=== PATIENT | male | born 1970 | race Caucasian/White ===

== ENCOUNTER 2017-02-04 16:23 | Inpatient (IN) ==
[2017-02-04] MEDS ORDERED: DUONEB (A & A) INH PRN ×2 (17:35→17:56)
[2017-02-04] MEDS ORDERED: VENTOLIN HFA INH PRN (17:42)
[2017-02-04] MEDS ORDERED: NITROGLYCERIN SL PRN (17:43)
[2017-02-04] MEDS ORDERED: SOLU-MEDROL IV SCH (17:45)
[2017-02-04] MEDS ORDERED: NS 250 ML ONE (17:47)
[2017-02-04] MEDS ORDERED: ZOFRAN IV PRN (17:56)
[2017-02-04] MEDS ORDERED: TYLENOL PO PRN (17:56)
[2017-02-04 18:00] LABS: HEMOGLOBIN 15.1 g/dL (14.0-18.0); MCH 28.2 PG (27-31); MCHC 33.6 g/dL (33-37); MPV 11.8 FL (7.4-10.4); RBC 5.36 XMIL (4.7-6.1)
[2017-02-04] MEDS: LEVAQUIN 500 MG/D5W 500 MG/100 ML IVPB IV SCH (18:08)
[2017-02-04] MEDS: SOLU-MEDROL IV SCH (18:09)
[2017-02-04 18:12] LABS: AGAP 17; ALBUMIN 4.3 g/dL (3.5-5.0); ALKALINE PHOSPHATASE 60 U/L (32-122); BUN 8 mg/dL (8-22); CALCIUM 9.1 mg/dL (8.8-10.2); CHLORIDE 94 mmol/L (98-107); COSMO 269; GOT 13 U/L (10-34); GPT 10 U/L (10-44); POTASSIUM 3.5 mmol/L (3.5-5.1); SODIUM 133 mmol/L (136-145); TCO2 22 mmol/L (25-35); TOTAL PROTEIN 7.7 g/dL (6.3-8.3)
[2017-02-04] MEDS: NS 1,000 ML IV SCH (18:12)
[2017-02-04] MEDS: GLUCOPHAGE PO SCH (18:12)
[2017-02-04] MEDS: PROTONIX IV SCH (18:20)
--- NOTE | 2017-02-04 18:23 | EKG Report ---
Test Performed on : 02/04/2017 6:02:42 PM Test Reason : COPD Blood Pressure : / mmHG Vent. Rate : 103 BPM Atrial Rate : 103 BPM P-R Int : 148 ms QRS Dur : 084 ms QT Int : 324 ms P-R-T Axes : 055 015 080 degrees QTc Int : 424 ms Sinus tachycardia. Otherwise normal ECG When compared with ECG of 02-SEP-2016 19:40, No significant change was found Confirmed by Anam Moffett MD ([id number]) on 02/26/2017 10:15:01 PM
[2017-02-04] MEDS: DUONEB (A & A) INH SCH ×2 (19:40→23:12)
[2017-02-04] MEDS: SYMBICORT 160/4.5 MICROGM INHALER INH SCH (19:41)
[2017-02-04] MEDS: CRESTOR PO SCH (20:46)
[2017-02-04] MEDS: TESSALON PO PRN (20:46)
[2017-02-04] MEDS: HUMALOG DOSE (PARKWAY) SUBQ SCH (21:04)
[2017-02-04] MEDS: NON-FORMULARY BULK MED SUBQ SCH (21:05)
[2017-02-04] MEDS ORDERED: INSULIN PEN NEEDLES ONE (21:08)
[2017-02-05] MEDS: SOLU-MEDROL IV SCH ×3 (02:11→18:08)
[2017-02-05] MEDS: NICODERM PATCH TD PRN ×2 (02:11→21:10)
[2017-02-05] MEDS: DUONEB (A & A) INH SCH ×5 (03:18→20:08)
[2017-02-05] MEDS: HUMALOG DOSE (PARKWAY) SUBQ SCH ×3 (06:10→16:31)
[2017-02-05 06:58] LABS: HEMATOCRIT 41.8 % (42.0-52.0); HEMOGLOBIN 13.5 g/dL (14.0-18.0); MCH 27.6 PG (27-31); MCHC 32.3 g/dL (33-37); MCV 85.3 FL (81-99); MPV 12.6 FL (7.4-10.4); RBC 4.9 XMIL (4.7-6.1)
[2017-02-05] MEDS ORDERED: PRILOSEC PO SCH (07:00)
[2017-02-05 07:36] LABS: AGAP 19; ALBUMIN 3.6 g/dL (3.5-5.0); ALKALINE PHOSPHATASE 56 U/L (32-122); BUN 14 mg/dL (8-22); CALCIUM 9.6 mg/dL (8.8-10.2); CHLORIDE 96 mmol/L (98-107); COSMO 285; GOT 13 U/L (10-34); GPT 10 U/L (10-44); MAGNESIUM 1.7 mg/dL (1.5-2.7); POTASSIUM 5.1 mmol/L (3.5-5.1); SODIUM 133 mmol/L (136-145); TCO2 18 mmol/L (25-35); TOTAL BILIRUBIN < 0.15 mg/dL (0.20-1.00); TOTAL PROTEIN 6.7 g/dL (6.3-8.3)
[2017-02-05] MEDS: SYMBICORT 160/4.5 MICROGM INHALER INH SCH ×2 (07:36→20:08)
[2017-02-05] MEDS: LOPRESSOR PO SCH (08:48)
[2017-02-05] MEDS: GLUCOPHAGE PO SCH ×2 (08:48→16:31)
[2017-02-05] MEDS: CELEXA PO SCH (08:48)
[2017-02-05] MEDS: VITAMIN B-12 PO SCH (08:48)
[2017-02-05] MEDS: NON-FORMULARY MED PO SCH (08:48)
[2017-02-05] MEDS: VITAMIN D PO SCH (08:48)
[2017-02-05] MEDS: ASPIRIN PO SCH (08:48)
[2017-02-05] MEDS: PRINIVIL PO SCH (08:49)
[2017-02-05] MEDS: IMDUR PO SCH (08:49)
--- NOTE | 2017-02-05 09:08 | HISTORY AND PHYSICAL ---
CHIEF COMPLAINT: Shortness of breath. Cough. HISTORY OF PRESENT ILLNESS: Patient is a 46-year-old male, who presented to the office with increased cough, congestion, increased work of breathing, increased shortness of breath. Notes he has been having low-grade fevers, occasional chills. Denies any chest pain, palpitations. States that his symptoms continued to worsen. Therefore, he came to the office today. PAST MEDICAL HISTORY: History of skin cancer, diabetes, COPD, hypertension, reflux, and coronary artery disease. ALLERGIES: No known drug allergies. MEDICATIONS: 1. Aspirin. 2. Celexa. 3. Advair. 4. Metformin. 5. Levemir. 6. Imdur. 7. Nexium. 8. Prinivil. FAMILY HISTORY: Notable for heart disease, lung cancer and diabetes in first-degree relatives. SOCIAL HISTORY: Patient continues to smoke a pack a day. Interestingly he notes that he is planning on quitting, which is the same note from March of 2016. Denies any illicit drug use or alcohol use. He is , lives at home. His primary care is [facility]. REVIEW OF SYSTEMS: Positive cough, congestion, increased work of breathing, increased dyspnea on exertion. Of note, he has had fever up to 102. His cough has been nonproductive, but persistent. Denies any sick contacts. Denies any dysuria, frequency. Denies any hesitancy, constipation, melena, hematochezia. Denies any chest pains currently. Denies palpitations. Denies skin rashes. PHYSICAL EXAMINATION: VITAL SIGNS: Reviewed. He is currently afebrile, pulse, 100 respiratory 22, blood pressure is stable. GENERAL: Patient is awake, alert. He appears much older than his stated age of 46. HEENT: Normocephalic, atraumatic. AGNES. NECK: Supple. CV: Regular rate and rhythm. CHEST: Decreased breath sounds bilaterally. Positive crackles throughout. ABDOMEN: Soft. EXTREMITIES: Moves all extremities. NEUROLOGIC: No focal changes. SKIN: Warm, dry. No rashes. ASSESSMENT: 1. Pneumonia. 2. Chronic tobacco abuse. 3. Type 2 diabetes. 4. Known coronary artery disease. 5. Hyperlipidemia. 6. Known peripheral vascular disease. 7. Chronic reflux. 8. Chronic obstructive pulmonary disease with mild exacerbation. 9. Hypertension. PLAN: We will admit patient to the hospital. Check labs. Chest x-ray, place on antibiotics, breathing treatments, steroids and continue to follow. cc: Arslan Moise MD
--- NOTE | 2017-02-05 09:11 | Diag Imaging Result Document ---
PROCEDURE NAME: CHEST-2 VIEWS - 02/05/2017 PA AND LATERAL RADIOGRAPH OF THE CHEST: COMPARISON: 09/02/2016. FINDINGS: There is a small stable calcified granuloma at the periphery of the left upper lung zone. This is stable. The lungs are grossly clear otherwise. There is no definite pleural fluid collection. Cardiac silhouette and central vasculature are unremarkable. IMPRESSION: No evidence of acute pathology.
[2017-02-05] MEDS: NS 1,000 ML IV SCH (15:55)
[2017-02-05] MEDS: LEVAQUIN 500 MG/D5W 500 MG/100 ML IVPB IV SCH (18:07)
[2017-02-05] MEDS: PROTONIX IV SCH (18:08)
[2017-02-05] MEDS: SODIUM CHLORIDE 0.9% INJ SCH (18:08)
[2017-02-05] MEDS ORDERED: INSULIN PEN NEEDLES ONE (21:01)
[2017-02-05] MEDS: CRESTOR PO SCH (21:04)
[2017-02-05] MEDS: NON-FORMULARY BULK MED SUBQ SCH (21:04)
[2017-02-05] MEDS: TESSALON PO PRN (21:04)
[2017-02-06] MEDS: DUONEB (A & A) INH SCH ×5 (00:13→15:12)
[2017-02-06] MEDS: SOLU-MEDROL IV SCH ×3 (03:10→17:11)
[2017-02-06] MEDS: HUMALOG DOSE (PARKWAY) SUBQ SCH ×4 (06:09→17:12)
[2017-02-06 06:54] LABS: HEMATOCRIT 38.4 % (42.0-52.0); HEMOGLOBIN 12.4 g/dL (14.0-18.0); MCH 27.9 PG (27-31); MCHC 32.3 g/dL (33-37); MCV 86.3 FL (81-99); MPV 12.4 FL (7.4-10.4); RBC 4.45 XMIL (4.7-6.1)
[2017-02-06 07:14] LABS: AGAP 19; ALBUMIN 3.4 g/dL (3.5-5.0); ALKALINE PHOSPHATASE 48 U/L (32-122); BUN 17 mg/dL (8-22); CALCIUM 9.6 mg/dL (8.8-10.2); CHLORIDE 102 mmol/L (98-107); COSMO 285; GOT 11 U/L (10-34); GPT 8 U/L (10-44); POTASSIUM 4.4 mmol/L (3.5-5.1); SODIUM 139 mmol/L (136-145); TCO2 18 mmol/L (25-35); TOTAL BILIRUBIN < 0.15 mg/dL (0.20-1.00)
[2017-02-06] MEDS: SYMBICORT 160/4.5 MICROGM INHALER INH SCH (07:30)
[2017-02-06] MEDS: GLUCOPHAGE PO SCH ×2 (07:48→17:12)
[2017-02-06] MEDS: NS 1,000 ML IV SCH (07:49)
--- NOTE | 2017-02-06 08:15 | PROGRESS NOTE ---
DATE: 02/06/2017 SUBJECTIVE: Patient notes that he is feeling a lot better. He is having less cough and congestion. He is still having increased work of breathing and shortness of breath compared to his baseline but improved since admission. Denies any current chest pain, palpitations, GI or issues. OBJECTIVE: Vital Signs: Reviewed. General: He is awake, alert, oriented. He is currently in no respiratory distress. HEENT: Normocephalic and atraumatic. Neck: Supple. CV: Regular rate and rhythm. Chest: Equal but slightly decreased breath sounds bilaterally. Faint wheezing bilaterally. Abdomen: Soft. Extremities: Moves all extremities. Neurologic: No focal changes. ASSESSMENT: 1. Diabetes with hyperglycemia secondary to Solu-Medrol. 2. Chronic obstructive pulmonary disease with moderate exacerbation. 3. Chronic tobacco abuse. PLAN: We will continue to wean steroids. Hopefully, he can be discharged home in 1-2 days. We will continue sliding scale insulin. This as well should improve with a decrease in Solu-Medrol. cc: Arslan Moise MD
[2017-02-06] MEDS: PRINIVIL PO SCH (09:28)
[2017-02-06] MEDS: VITAMIN D PO SCH (09:28)
[2017-02-06] MEDS: VITAMIN B-12 PO SCH (09:28)
[2017-02-06] MEDS: ASPIRIN PO SCH (09:28)
[2017-02-06] MEDS: NON-FORMULARY MED PO SCH (09:28)
[2017-02-06] MEDS: IMDUR PO SCH (09:28)
[2017-02-06] MEDS: LOPRESSOR PO SCH (09:28)
[2017-02-06] MEDS: CELEXA PO SCH (09:28)
[2017-02-06] MEDS: MEDROL PO SCH ×2 (11:08→11:18)
[2017-02-06] MEDS ORDERED: MEDROL PO SCH ×2 (13:00→17:00)
[2017-02-06 16:27] VITALS: BP 123/69
[2017-02-06] MEDS ORDERED: LEVAQUIN PO SCH (17:00)
[2017-02-06] MEDS: SODIUM CHLORIDE 0.9% INJ SCH (17:11)
[2017-02-06] MEDS: PROTONIX IV SCH (17:11)
[2017-02-07] MEDS ORDERED: MEDROL PO SCH (09:00)
[2017-02-07] MEDS ORDERED: MEDROL PO ONE (21:00)
[2017-02-08] MEDS ORDERED: MEDROL PO SCH (21:00)
--- NOTE | 2017-02-14 13:51 | PROGRESS NOTE ---
DATE: 02/05/2017 SUBJECTIVE: Patient notes that he is feeling a little bit better. He is having less cough, less shortness of breath. Denies any chest pain, palpitations. Denies any GI or issues. Denies any fevers or chills. OBJECTIVE: Vital Signs: Reviewed and stable. HEENT: Normocephalic. Neck: Supple. CV: Regular rate. Chest: Decreased breath sounds but equal bilaterally. Improved from yesterday's exam. Positive wheezing. Abdomen: Soft, nondistended. Extremities: Moves all extremities. Neurologic: No changes. ASSESSMENT: 1. Pneumonia. 2. Chronic tobacco abuse. 3. Type 2 diabetes. 4. Known coronary artery disease. 5. Hyperlipidemia. 6. Chronic reflux. 7. Hypertension. 8. COPD with exacerbation. PLAN: We will continue patient on his current antibiotics. Will attempt to decrease his steroids, wean down his oxygen, continue breathing treatments. Further orders as needed. cc: Arslan Moise MD
--- NOTE | 2017-02-15 12:56 | DISCHARGE SUMMARY ---
ADMISSION DATE: 02/04/2017 DISCHARGE DATE: 02/06/2017 DISCHARGE DIAGNOSES: 1. Chronic obstructive pulmonary disease exacerbation. 2. Pneumonia. 3. Type 2 diabetes. CONSULTATIONS: None. PROCEDURES: None. BRIEF HOSPITAL COURSE: The patient is a 46-year-old male who presented to the emergency department as noted. He was treated in usual fashion, placed on antibiotics, breathing treatments, oxygen. He continued to improve. On discharge, he was awake, alert. He was in no distress and was feeling better. DISPOSITION: The patient will be discharged home. He will follow up with WAI Lockhart, his primary provider in 1-2 weeks. Will continue tapering dose of steroids as well as antibiotics. He will continue breathing treatments as needed. TIME SPENT: 35 minutes spent in discharge planning and instructions. cc: Arslan Moise MD
== END 2017-02-06 19:12 | disposition home or self-care (01) ==
LOC: P.DIRADM 16:23 → P.MEDSURG 17:03
PROVIDERS: ADMIT Family Medicine; ATTEND Family Medicine

== ENCOUNTER 2019-02-16 11:51 | Inpatient (IN) ==
--- NOTE | 2019-02-16 12:29 | EKG Report ---
Test Performed on : 02/16/2019 12:00:06 PM Test Reason : CP Blood Pressure : / mmHG Vent. Rate : 074 BPM Atrial Rate : 074 BPM P-R Int : 142 ms QRS Dur : 092 ms QT Int : 366 ms P-R-T Axes : 038 038 010 degrees QTc Int : 406 ms Normal sinus rhythm. Normal ECG When compared with ECG of 04-FEB-2017 18:02, Nonspecific T wave abnormality now evident in Inferior leads Unconfirmed Result
[2019-02-16] MEDS ORDERED: ASPIRIN PR ONE (12:47)
[2019-02-16] MEDS ORDERED: ASPIRIN PO ONE (12:47)
[2019-02-16 12:58] LABS: BASO# 0.03 X1000 (0.0-0.2); BASO% 0.3 % (0.0-0.8); EOS# 0.18 X1000 (0.0-0.7); HEMATOCRIT 42.3 % (42.0-52.0); HEMOGLOBIN 14.4 g/dL (14.0-18.0); LYMPH# 2.83 X1000 (1.2-3.4); LYMPH% 31.5 % (20.5-51.1); MCH 28.7 PG (27-31); MCV 84.4 FL (81-99); MONO# 0.94 X1000 (0.11-0.59); MONO% 10.5 % (1.7-9.3); MPV 10.7 FL (7.4-10.4); NEUT# 5.01 X1000 (1.4-6.5); NEUT% 55.7 % (42.2-75.2); PLT 182 X1000 (130-400); RBC 5.01 XMIL (4.7-6.1); RDW 13.9 % (11.5-14.5); WBC 8.99 X1000 (4.8-10.8)
--- NOTE | 2019-02-16 13:04 | Diag Imaging Result Doc PS360 ---
CHEST-2 VIEWS - 02/16/2019 INDICATION: CP COMPARISON: 02/05/2017 FINDINGS: The lungs are normally expanded and clear. Heart size and mediastinal contours are normal. No pneumothorax or pleural effusion. IMPRESSION: Negative exam. Electronically signed by Edgar Payton 02/16/2019 1:02 PM
[2019-02-16 13:09] LABS: INR 0.83; PROTIME 12.1 Seconds (11.0-16.0); PTT 26.4 Seconds (22.3-41.8)
[2019-02-16 13:25] LABS: SODIUM 139 mmol/L (136-145)
[2019-02-16 13:26] LABS: AGAP 10; ALB/GLOB RATIO 1.6; ALBUMIN 3.9 g/dL (3.5-5.0); ALKALINE PHOSPHATASE 67 U/L (32-122); BUN 6 mg/dL (8-22); CALCIUM 8.6 mg/dL (8.8-10.2); CHLORIDE 104 mmol/L (98-107); CK PROFILE 75 U/L (24-204); COSMO 277; CREATININE 0.7 mg/dL (0.7-1.2); ESTIMATED GFR > 60; GLUCOSE 136 mg/dL (70-104); GOT 9 U/L (10-34); GPT 8 U/L (10-44); POTASSIUM 4.3 mmol/L (3.5-5.1); TCO2 25 mmol/L (25-35); TOTAL BILIRUBIN 0.15 mg/dL (0.20-1.00); TOTAL PROTEIN 6.3 g/dL (6.3-8.3)
[2019-02-16] MEDS ORDERED: TYLENOL PO PRN (15:02)
[2019-02-16] MEDS ORDERED: NITROGLYCERIN SL PRN (15:02)
[2019-02-16] MEDS ORDERED: ZOFRAN IV PRN (15:02)
[2019-02-16] MEDS ORDERED: MORPHINE IV PRN (15:02)
[2019-02-16] MEDS: HUMULIN R SUBQ SCH ×2 (16:00→22:50)
[2019-02-16 16:31] LABS: UR AMPHETAMINES QUAL NONE DETECTED (NONE DETECT); UR BARBITUATES QUAL NONE DETECTED (NONE DETECT); UR BENZODIAZEPIN QUAL NONE DETECTED (NONE DETECT); UR CANNABINOIDS QUAL NONE DETECTED (NONE DETECT); UR COCAINE QUAL NONE DETECTED (NONE DETECT); UR METHADONE QUAL NONE DETECTED (NONE DETECT); UR OPIATES QUAL NONE DETECTED (NONE DETECT); UR OXYCODONE QUAL NONE DETECTED (NONE DETECT); UR PCP QUAL NONE DETECTED (NONE DETECT)
[2019-02-16 16:51] LABS: FREE T4 1.2 ng/dL (0.93-1.70); TSH 1.75 uIUmL (0.27-4.20)
--- NOTE | 2019-02-16 16:56 | EKG Report ---
Test Performed on : 02/16/2019 3:41:12 PM Test Reason : CP Blood Pressure : / mmHG Vent. Rate : 052 BPM Atrial Rate : 052 BPM P-R Int : 160 ms QRS Dur : 094 ms QT Int : 436 ms P-R-T Axes : 039 017 019 degrees QTc Int : 405 ms Sinus bradycardia. Otherwise normal ECG When compared with ECG of 16-FEB-2019 12:00, (Unconfirmed) No significant change was found Unconfirmed Result
--- NOTE | 2019-02-16 17:36 | HISTORY AND PHYSICAL ---
PRIMARY CARE PROVIDER: [facility]AI Haywood from [facility]. CHIEF COMPLAINT: Chest pain. HISTORY OF PRESENT ILLNESS: Mr. Tj Gongora is a 48-year-old male with a medical history of coronary artery disease and 2 cardiac stents. He now presents with complaints of chest pain. This morning it has been on and off all day. It would last for about 10 minutes and then it would be gone. He states the last time he had chest pain was around 30 minutes prior to my assessment. It was associated with dizziness, lightheadedness, nausea, chills and sweats, but it did not radiate. At home he took a sublingual nitroglycerin, and here he took aspirin, which he feels made his symptoms resolve. Given his cardiac history, we will admit and consult Cardiology. Will do serial cardiac enzymes and echocardiogram. PAST MEDICAL HISTORY: 1. Skin cancer. 2. Diabetes mellitus type 2. 3. COPD. 4. Hypertension. 5. GERD. 6. Coronary artery disease with a myocardial infarction in 2012 and again in 2017. 7. Severe peripheral arterial disease and peripheral vascular disease. He has had either a femoral stent or a femoral-popliteal bypass (the patient was unsure). 8. 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 PAST SURGICAL HISTORY: 1. PTCA x2. 2. Fem-pop versus femoral stent. The patient was unclear. 3. Bilateral cataracts. 4. Skin cancer excision. SOCIAL HISTORY: A kqwv-[id number]-oxl-day smoker for 20+ years. Denies alcohol or illicit drug use. Lives at home with his . Has financial difficulties. FAMILY HISTORY: Mother has diabetes and an unknown cancer. Father has diabetes and lung cancer. ALLERGIES: No known drug allergies. HOME MEDICATIONS: 1. Aspirin 325 mg p.o. daily. 2. Brilinta 90 mg p.o. twice daily 3. Celexa 20 mg p.o. nightly. 4. Pletal 100 mg p.o. twice daily. 5. Farxiga 10 mg p.o. daily. 6. Neurontin 600 mg p.o. t.i.d. 7. Metformin 1000 mg p.o. twice daily. 8. Isosorbide mononitrate extended release 60 mg p.o. nightly. 9. Jardiance 10 mg p.o. daily. 10.Toprol 25 mg p.o. daily. 11.Omeprazole 40 mg p.o. daily. 12.Plavix 75 mg p.o. daily. 13.Lisinopril 10 mg p.o. nightly. 14.Tricor 145 mg p.o. daily. 15.Crestor 20 mg p.o. daily. REVIEW OF SYSTEMS: A 14-point review of systems is completed, and all are negative except for those mentioned above in the HPI. PHYSICAL EXAMINATION: VITAL SIGNS: Temperature 97.6, heart rate 53, respiratory rate 18, blood pressure 129/85, O2 saturation 98% on room air. He is 5 feet 6 inches tall, weighs 165 pounds. BMI is 26.6. GENERAL: Mr. Tj Gongora is a 48-year-old male who is in no acute distress. He is able to answer questions appropriately. HEENT: Very poor dentition. He is atraumatic, normocephalic. Pupils equal, round, and reactive to light. Extraocular movements intact. Mucous membranes are moist. NECK: Trachea midline. CARDIOVASCULAR: S1 and S2. Bradycardic rate and rhythm. No rubs, gallops or murmurs. No lower extremity edema, +1 dorsalis pedal pulses, +2 radial pulses. Negative for JVD or carotid bruits. PULMONARY: Clear to auscultate. Bilateral breath sounds. No accessory muscle use or work of breathing noted. GI: Soft, nontender, nondistended. Positive bowel sounds x4. EXTREMITIES: Moves all extremities equally. Full range of motion. NEUROLOGIC: A O x3. Follows commands. Sensory is intact. SKIN: Warm, dry. Multiple areas of lesions that appear to be scabies. LABORATORY DATA: White blood cells 8000, hemoglobin 14, hematocrit 42, platelet count 182. INR 0.83. Sodium 139, potassium 3.3, BUN 6, creatinine 0.7, glucose 136. CK 75, troponin less than 0.01, proBNP 171. Albumin is 3.9. Urine drug screen negative. IMAGING: Chest x-ray: Negative exam. EKG: Normal sinus rhythm, rate 74, QTc 406. ASSESSMENT/PLAN: 1. Atypical chest pain. Is chest pain free at this time. Enzymes are negative. No ST changes on his EKG, but will do serial cardiac enzymes. He has had a history of heart attack x2 along with cardiac stent. He has not been compliant and has not been on his Plavix or his Brilinta or aspirin. He has not been taking those, so we will resume that and consult Cardiology for any further recommendations. 2. Diabetes mellitus type 2, likely uncontrolled, as he probably does not take his medications. Will do pattern blood glucoses and sliding scale insulin and check a hemoglobin A1c. Diabetic diet. 3. Severe peripheral arterial disease and peripheral vascular disease. Will continue home medications that he has not been taking. 4. Gastroesophageal reflux disease. Continue proton pump inhibitor. 5. Chronic obstructive pulmonary disease. No exacerbation. 6. Deep venous thrombosis prophylaxis. He is on several different antiplatelet medications. Will continue those. 7. Hyperlipidemia. Continue statin and Tricor. 8. Noncompliance. This is probably likely due to lack of financial stability. tax services intern has been consulted. 9. Tobacco abuse. Cessation discussed. Dictated by WAI Sherwood for Emir Hanson MD Addendum: Patient seen and examined by myself. Agree with WAI note. It reflects my assessment and plan. Patient is being admitted to hospital for chest pain. He has risk factor for CAD and has stents placed. Will repeat an echo, trend troponins and consult Cardiology. cc: WAI Sherwood MD [facility]
--- NOTE | 2019-02-16 17:38 | HISTORY AND PHYSICAL ---
ADDENDUM: ASSESSMENT/PLAN: The patient has scabies apparently all over the body, so we will put him in isolation with contact precautions and provide him with a permethrin cream topical daily for 2 days. Dictated by WAI Sherwood for Emir Hansno MD cc: WAI Sherwood MD
[2019-02-16] MEDS ORDERED: ELIMITE 5% CREAM TOP SCH (18:30)
[2019-02-16] MEDS ORDERED: BRILINTA PO SCH (21:00)
[2019-02-16] MEDS: NEURONTIN PO SCH (21:11)
[2019-02-16] MEDS: CELEXA PO SCH (22:50)
[2019-02-16] MEDS: PLETAL PO SCH (22:50)
[2019-02-16] MEDS: IMDUR PO SCH (22:50)
[2019-02-16] MEDS: PRINIVIL PO SCH (22:50)
[2019-02-17] MEDS ORDERED: PRILOSEC PO SCH ×2 (07:00→09:00)
[2019-02-17 07:08] LABS: BASO# 0.03 X1000 (0.0-0.2); BASO% 0.4 % (0.0-0.8); EOS# 0.14 X1000 (0.0-0.7); EOS% 1.8 % (0.0-10.0); HEMATOCRIT 42.5 % (42.0-52.0); HEMOGLOBIN 14.1 g/dL (14.0-18.0); LYMPH% 32.5 % (20.5-51.1); MCH 28.1 PG (27-31); MCHC 33.2 g/dL (33-37); MCV 84.8 FL (81-99); MONO# 0.85 X1000 (0.11-0.59); MONO% 10.6 % (1.7-9.3); MPV 11.1 FL (7.4-10.4); NEUT# 4.38 X1000 (1.4-6.5); NEUT% 54.7 % (42.2-75.2); PLT 187 X1000 (130-400); RBC 5.01 XMIL (4.7-6.1); RDW 13.9 % (11.5-14.5)
[2019-02-17 07:15] LABS: INR 0.91
[2019-02-17 07:16] LABS: PTT 25.5 Seconds (22.3-41.8)
[2019-02-17 07:40] LABS: AGAP 9; ALB/GLOB RATIO 1.7; ALBUMIN 3.7 g/dL (3.5-5.0); ALKALINE PHOSPHATASE 57 U/L (32-122); BUN 10 mg/dL (8-22); CALCIUM 8.4 mg/dL (8.8-10.2); CHLORIDE 104 mmol/L (98-107); COSMO 278; CREATININE 0.6 mg/dL (0.7-1.2); ESTIMATED GFR > 60; GLUCOSE 130 mg/dL (70-104); GOT 9 U/L (10-34); GPT 7 U/L (10-44); MAGNESIUM 1.7 mg/dL (1.5-2.7); POTASSIUM 4.2 mmol/L (3.5-5.1); SODIUM 139 mmol/L (136-145); TCO2 26 mmol/L (25-35); TOTAL BILIRUBIN 0.22 mg/dL (0.20-1.00); TOTAL PROTEIN 5.9 g/dL (6.3-8.3)
--- NOTE | 2019-02-17 07:59 | EKG Report ---
Test Performed on : 02/17/2019 07:47:37 AM Test Reason : chest pain Blood Pressure : / mmHG Vent. Rate : 071 BPM Atrial Rate : 071 BPM P-R Int : 144 ms QRS Dur : 094 ms QT Int : 394 ms P-R-T Axes : 000 095 115 degrees QTc Int : 428 ms Normal sinus rhythm. Lateral infarct , age undetermined Abnormal ECG When compared with ECG of 16-FEB-2019 15:41, (Unconfirmed) Lateral infarct is now present Nonspecific T wave abnormality, worse in Inferior leads Nonspecific T wave abnormality now evident in Lateral leads Confirmed by Hector SALGUERO, Hudson Encarnacion ([id number]) on 02/18/2019 11:38:31 AM
[2019-02-17] MEDS: NEURONTIN PO SCH ×3 (08:58→16:51)
[2019-02-17] MEDS: TRICOR PO SCH (09:01)
[2019-02-17] MEDS: CRESTOR PO SCH (09:01)
[2019-02-17] MEDS: PLETAL PO SCH ×2 (09:02→21:42)
--- NOTE | 2019-02-17 11:04 | PROVIDER DOCUMENTATION ---
This chart was entered by Kadi Gracia Scribe, acting as scribe for Tutu Aragon MD. HPI-Chest Pain - General Chief Complaint: Chest Pain Stated Complaint: CHEST PAIN,ALSO HAVE ACID REFLUX Time Seen by Provider: 02/16/19 14:29 Source: patient, family Allergies/Adverse Reactions: Patient Allergies Allergy/AdvReac Type Severity Reaction Status Date / Time No Known Allergies Allergy Verified 02/16/19 15:03 Home Medications: Home Medication List Medication Instructions Recorded Confirmed Last Taken Type Citalopram [Celexa] 20 mg PO QPM 04/11/16 02/16/19 05/04/16 History Isosorbide Mononitrate [Isosorbide 60 mg PO QPM 04/11/16 02/16/19 05/05/16 20:00 History Mononitrate ER] LISINOpril [Prinivil] 10 mg PO QPM 04/11/16 02/16/19 05/05/16 20:00 History ROSUVAstatin [Crestor] 20 mg PO DAILY #30 tablet 04/12/16 02/16/19 05/05/16 Rx Metformin [Glucophage] 1,000 mg PO DAILY 05/02/16 02/16/19 05/05/16 20:00 History Benzonatate [Tessalon] 100 mg PO TID PRN PRN #90 capsule 02/06/17 Unknown Rx Aspirin 325 mg PO DAILY 02/16/19 02/16/19 Unknown History Cilostazol 100 mg PO BID 02/16/19 02/16/19 Unknown History Clopidogrel [Plavix] 1 tab PO DAILY 02/16/19 02/16/19 Unknown History Dapagliflozin Propanediol [Farxiga] 10 mg PO DAILY 02/16/19 02/16/19 Unknown History Empagliflozin [Jardiance] 10 mg PO DAILY 02/16/19 02/16/19 Unknown History Fenofibrate [Tricor] 145 mg PO DAILY 02/16/19 02/16/19 Unknown History Gabapentin 600 mg PO TID 02/16/19 02/16/19 Unknown History Metoprolol [Lopressor] 25 mg PO DAILY 02/16/19 02/16/19 Unknown History Omeprazole 40 mg PO DAILY 02/16/19 02/16/19 Unknown History Ticagrelor [Brilinta] 90 mg PO BID 02/16/19 02/16/19 Unknown History - History of Present Illness-CP Nature of Presenting Problem: 48 yowm presents to the ed with c/o chest pain, gerd and has been off all medications for 2 months. pt on exam sts all pain has resolved and back to baseline. Location: reports: central Chest Pain Radiation: reports: no radiation Quality of Pain: reports: aching Severity in ED: moderate Onset/Duration: this morning Timing: gone now Context/Activities at Onset: reports: light activity Modifying Factors: improves with: nothing Associated Symptoms: reports: fatigue. denies: abdominal pain, back pain, dizziness, nausea, shortness of breath, vomiting Nitro Today/Relief: no nitro taken today Aspirin Treatment Today: 325 mg x 1, provided by ED Prior Chest Pain/Cardiac Workup: reports: heart attack Similar Symptoms Previously?: Yes Recently Seen Here or By Another Healthcare Provider: No Review of Systems - Adult - REVIEW OF SYSTEMS - ADULT Constitutional: reports: fatique. denies: chills, fever Eyes: reports: no symptoms reported Ears, Nose, Mouth & Throat: reports: no symptoms reported Cardiovascular: reports: see HPI, chest pain. denies: palpitations, syncope Respiratory: denies: shortness of breath, wheezing Gastrointestinal: denies: abdominal pain, diarrhea, nausea, vomiting Genitourinary: reports: no symptoms reported Musculoskeletal: denies: back pain, neck pain Integumentary: reports: no symptoms reported Neurological: denies: dizziness/vertigo, headache/migraines Psychiatric: reports: no symptoms reported Endocrine: reports: no symptoms reported Hematologic/Lymphatic: reports: no symptoms reported Allergic/Immunologic: reports: no symptoms reported All Other Systems: Reviewed and Negative Past History - Adult - PAST MEDICAL HISTORY-ADULT Review of Records: reports: Nursing Assessment Review, Medications Reviewed Major Childhood Illnesses: reports: denies history Cardiovascular: reports: cardiac disease, HTN, hyperlipidemia, GA, PVD Respiratory: reports: COPD Gastrointestinal: reports: GERD Genitourinary: reports: denies history Musculoskeletal: reports: denies history Neurological: reports: denies history Psychiatric: reports: denies history Endocrine/Immune: reports: Diabetes Diabetes Type: Type 2 Other Conditions: reports: skin disorder (skin cancer) - PRIOR SURGERIES/PROCEDURES Surgical/Procedure History: reports: CABG, cardiac stent - IMMUNIZATION STATUS Childhood Immunizations: UTD Flu Vaccine: NUTD - FAMILY HISTORY Family History: reviewed, not pertinent - SOCIAL HISTORY Smoking: cigarettes, greater than 1 pack/day Provider spent 3-5 mins advising pt. on dangers of tobacco.: Discussed manners to quit use, and f/u contacts for add'l counseling. Substance Use: denies Alcohol Use Frequency: never Living Situation: family Physical Exam-General - PHYSICAL EXAM-ADULT Initial Vital Signs Reviewed: Yes - CONSTITUTIONAL General Appearance: appears well, alert, no apparent distress (pt sts pain has resolved) - EYES Eyes: PERRL/EOMI, pink conjunctivae - HEAD, EARS, NOSE, MOUTH & THROAT HENMT: moist mucous membranes, dental decay - NECK Neck: non-tender, full range of motion, supple, normal inspection - RESPIRATORY Respiratory: chest non-tender, lungs clear, normal breath sounds, no pleuratic chest pain, no respiratory distress, no accessory muscle use - CARDIOVASCULAR Cardiovascular: normal peripheral pulses, regular rate, rhythm - GASTROINTESTINAL (ABDOMEN) Abdominal Exam: normal bowel sounds, non tender, soft - LYMPHATIC Lymphatic: no adenopathy - MUSCULOSKELETAL Back Exam: normal inspection, no CVA tenderness, no vertebral tenderness Extremity: normal range of motion, non-tender, normal inspection, no pedal edema , no calf tenderness, normal capillary refill, pelvis stable - SKIN Integumentary: normal color, normal turgor, warm/dry - NEUROLOGIC Neurologic: grossly normal, no motor/sensory deficits - PSYCHIATRIC Psych/Mental Status: normal mood/affect, normal thought content, normal thought process, oriented x 3 - HEART Score HEART Score: History: Highly Suspicious HEART Score: ECG: Non-Specific Repolarization Disturbance/LBBB/PM HEART Score: Age: 45-65 Years HEART Score: Risk Factors for Atherosclerotic Disease: > or = 3 Risk Factors or History of Atherosclerotic Disease HEART Score: Troponin: < or = Normal Limit Total HEART Score:: 6 Progress - PLAN OF CARE/RESULTS Progress/Plan/Lab Results: Laboratory Results - last 24 hr 02/16/19 02/16/19 02/16/19 12:49 12:49 12:49 WBC 8.99 RBC 5.01 Hgb 14.4 Hct 42.3 MCV 84.4 MCH 28.7 MCHC 34.0 RDW Std Deviation 13.9 Plt Count 182 MPV 10.7 H Immature Gran % (Auto) 0.0 Neut % (Auto) 55.7 Lymph % (Auto) 31.5 [place] % (Auto) 10.5 H Eos % (Auto) 2.0 Baso % (Auto) 0.3 Immature Gran # (Auto) 0.00 Neut # (Auto) 5.01 Lymph # (Auto) 2.83 [place] # (Auto) 0.94 H Eos # (Auto) 0.18 Baso # (Auto) 0.03 PT INR PTT (Actin FS) Sodium 139 Potassium 4.3 Chloride 104 Carbon Dioxide 25 Anion Gap 10 BUN 6 L Creatinine 0.7 Estimated GFR/1.73 m2 > 60 BUN/Creatinine Ratio 9 Glucose 136 H Calculated Osmolality 277 Calcium 8.6 L Total Bilirubin 0.15 L AST 9 L ALT 8 L Alkaline Phosphatase 67 Creatine Kinase 75 Troponin T Kvv-G-Yjixwioygqu Pept 171 H Total Protein 6.3 Albumin 3.9 Globulin 2.4 Albumin/Globulin Ratio 1.6 02/16/19 02/16/19 12:49 12:49 WBC RBC Hgb Hct MCV MCH MCHC RDW Std Deviation Plt Count MPV Immature Gran % (Auto) Neut % (Auto) Lymph % (Auto) [place] % (Auto) Eos % (Auto) Baso % (Auto) Immature Gran # (Auto) Neut # (Auto) Lymph # (Auto) [place] # (Auto) Eos # (Auto) Baso # (Auto) PT 12.1 INR 0.83 PTT (Actin FS) 26.4 Sodium Potassium Chloride Carbon Dioxide Anion Gap BUN Creatinine Estimated GFR/1.73 m2 BUN/Creatinine Ratio Glucose Calculated Osmolality Calcium Total Bilirubin AST ALT Alkaline Phosphatase Creatine Kinase Troponin T < 0.010 Bci-R-Ehphjffxsih Pept Total Protein Albumin Globulin Albumin/Globulin Ratio Orders Category Date Time Status Admit - [facility] Routine AdmDCTranf 02/16/19 15:02 Active Cardiac Monitoring DIRECTED Care 02/16/19 12:48 Completed FSBS/Accucheck Result AC + HS Care 02/16/19 15:02 Active Notify MD if DIRECTED Care 02/16/19 18:45 Active Nursing- MD Consult Request ROUTINE Care 02/16/19 15:02 Active Oxygen Therapy- ED Nursing DIRECTED Care 02/16/19 12:48 Completed Saline Loc DIRECTED Care 02/16/19 18:45 Active Saline Loc NOW Care 02/16/19 12:48 Completed Update & Confirm Home Medicati ROUTINE Care 02/16/19 15:05 Active Vital Signs Order Q 4-HR ASSESS Care 02/16/19 18:45 Active Z-Document. for Tele Applied ORDERED Care 02/16/19 18:45 Completed Physician/Provider Consults Routine Cons 02/16/19 15:02 Ordered Diabetic Diet Diet 02/16/19 15:02 Active CHEST-2 VIEWS [RAD] Stat Exams 02/16/19 12:48 Completed C REACTIVE PROT QUANT [CHEM] Stat Lab 02/16/19 15:47 Completed CBC WITH ELECTRONIC DIFF [HEME] Routine Lab 02/17/19 06:52 Completed CBC WITH ELECTRONIC DIFF [HEME] Stat Lab 02/16/19 12:49 Completed CK PROFILE [SP CHEM] Q8H Lab 02/16/19 15:47 Completed CK PROFILE [SP CHEM] Q8H Lab 02/16/19 23:05 Completed CK PROFILE [SP CHEM] Q8H Lab 02/17/19 06:52 Completed CK PROFILE [SP CHEM] Stat Lab 02/16/19 12:49 Completed COMPREHENSIVE METABOLIC PANEL [CHEM] Routine Lab 02/17/19 06:52 Completed COMPREHENSIVE METABOLIC PANEL [CHEM] Stat Lab 02/16/19 12:49 Completed FREE T4 Stat Lab 02/16/19 15:47 Completed MAGNESIUM [CHEM] Routine Lab 02/17/19 06:52 Completed PRO B-NATRIURETIC PEPTIDE Stat Lab 02/16/19 12:49 Completed PROTIME WITH INR [COAG] Routine Lab 02/17/19 06:52 Completed PROTIME WITH INR [COAG] Stat Lab 02/16/19 12:49 Completed PTT [COAG] Routine Lab 02/17/19 06:52 Completed PTT [COAG] Stat Lab 02/16/19 12:49 Completed TROPONIN T Q8H Lab 02/16/19 15:47 Completed TROPONIN T Q8H Lab 02/16/19 23:05 Completed TROPONIN T Q8H Lab 02/17/19 06:52 Completed TROPONIN T Stat Lab 02/16/19 12:49 Completed TSH Stat Lab 02/16/19 15:47 Completed URINE DRUG SCREEN Stat Lab 02/16/19 15:55 Completed Acetaminophen [Tylenol] Med 02/16/19 15:02 Active 650 mg PO Q6H PRN PRN Aspirin Med 02/16/19 12:47 Discontinued 300 mg [place] NOW ONE Aspirin Med 02/17/19 09:00 Active 325 mg PO DAILY Aspirin Med 02/16/19 12:47 Discontinued 325 mg PO NOW ONE Enoxaparin [Lovenox] Med 02/17/19 09:00 Active 40 mg SUBQ Q24H Insulin Human Regular [Humulin R] Med 02/16/19 16:00 Active See Protocol SUBQ 0700,1100,1600,2100 Morphine Med 02/16/19 15:02 Active 2 - 4 mg IV Q5M PRN PRN Nitroglycerin Sl [Nitroglycerin] Med 02/16/19 15:02 Active 0.4 mg SL Q5M PRN PRN Omeprazole [Prilosec] Med 02/17/19 07:00 Active 20 mg PO DAILY@0700 Ondansetron [Zofran] Med 02/16/19 15:02 Active 4 mg IV Q4H PRN PRN Oxygen Device Routine Oth 02/16/19 18:45 Completed Telemetry [OM.EQ] Routine Oth 02/16/19 18:45 Active EKG [EKG] Routine Ther 02/17/19 08:00 Draft EKG [EKG] Stat Ther 02/16/19 12:03 Draft EKG [EKG] Stat Ther 02/16/19 12:48 Draft Echo Spec/Color Doppler Routine Ther 02/16/19 15:02 Completed Transfer/Admit Order [TRANSFER] Routine Transfer 02/16/19 14:57 Completed Result Diagrams: 02/17/19 06:52 02/17/19 06:52 - REASSESSMENT Reassessment #1 Time Reassessed: 14:47 (pt still has no pain at this time) Status: unchanged - EKG 1 Time of EKG reading by physician:: 12:00 EKG Read and Signed by:: Tutu Aragon EKG Interpretation (*Must complete 3 of following elements*): Normal Rate: 74 Rhythm: nsr Mulga: normal QRS: normal [place] Interval: normal Comments: known cardiac disease 2 Time of EKG reading by physician:: 15:41 EKG Read and Signed by:: Tutu Aragon EKG Interpretation (*Must complete 3 of following elements*): Normal Rate: 52 Rhythm: sinus bradycardia Mulga: normal QRS: normal [place] Interval: normal ST Wave: normal Prior EKG Comparison: changes noted - XRAY 1 XRAY: Bilateral XRAY Study: Chest Impression: See EMR Report (CHEST-2 VIEWS - 02/16/2019 INDICATION: CP COMPARISON: 02/05/2017 FINDINGS: The lungs are normally expanded and clear. Heart size and mediastinal contours are normal. No pneumothorax or pleural effu [place]in[place]. IMPRESSION: Negative exam. Electronically signed by Edgar Payton 02/16/2019 1:02 PM 02/16/19 1302 Interpreting Physician: Edgar Payton MD Dictated Date/Time: 02/16/19 1300 cc: Tutu Aragon MD; Maddie Elizondo) - CONSULTS/PCP/HOSPITALIST Notification #1 *Consult/PCP/Hospitalist*: hospitalist Consult Disposition: Admit Departure - Departure Date of Disposition Decision: 02/16/19 Time of Disposition Decision: 14:28 DIAGNOSIS: Chest pain in adult, Tobacco use disorder Disposition: ADMITTED INPATIENT 09 Certified Medical Emergency: Emergent Condition: Stable - Critical Care Note This patient required my direct & personal management of CC.: No Attestation - Physician/ DARVIN Attestation Patient care was provided by Advanced Practice Provider:: No The physician spent face to face time with patient:: Yes Advanced Practice Provider documentation review:: Supervising physician onsite and consulted in the evaluation and care of this patient. The physician did have a face to face encounter with the patient. This chart was documented by the indicated scribe, (Kadi Gracia Scribe) and accurately reflects the services I performed and decisions made by me, Tutu Aragon MD, as attested by the provider's signature.
[2019-02-17] MEDS: HUMULIN R SUBQ SCH ×3 (11:53→21:41)
--- NOTE | 2019-02-17 14:23 | CONSULTATION ---
DATE OF CONSULTATION: 02/17/2019 IMPRESSION: 1. Episode of chest discomfort with mixed features but predominantly atypical for myocardial ischemia. The ECG and serial cardiac enzymes are benign. 2. Atherosclerotic coronary disease with previous coronary angioplasty/stenting of posterior descending artery in 2017 as well as previous angioplasty/stenting of left circumflex coronary artery in 2013. Last cardiac catheterization study performed April of 2018 noteworthy for 70% tubular stenosis in mid left anterior descending coronary which was relatively a smaller vessel at this point, patent stent in left circumflex coronary, and patent stent in posterior descending artery. Medical management recommended. 3. Chronic ongoing cigarette use. 4. Chronic obstructive pulmonary disease. 5. Hypertension. 6. Peripheral vascular disease and previous femoral to popliteal bypass. RECOMMENDATIONS: 1. Agree with plans for Lexiscan sestamibi study. 2. Smoking cessation strongly advised. HISTORY: This is a 48-year-old white male with past history of atherosclerotic coronary disease as outlined above, chronic cigarette use, COPD, hypertension, and peripheral vascular disease was admitted after he presented after episode of chest discomfort. He describes right parasternal discomfort which was dull/sharp. He believes he may have felt some discomfort in his right upper extremity. Discomfort began while he was at rest. He took a nitroglycerin and discomfort seemed to fade away. He has not had any further chest discomfort. Unfortunately, continues to smoke half pack of cigarettes per day. PAST MEDICAL HISTORY: 1. Atherosclerotic coronary disease as outlined above. 2. Chronic obstructive pulmonary disease. 3. Type 2 diabetes mellitus. 4. Hypertension. 5. Gastroesophageal reflux disease. 6. Peripheral vascular disease. ALLERGIES: No known drug allergies. CURRENT MEDICATIONS: As listed. SOCIAL HISTORY: He continues to smoke a half pack of cigarettes per day. He denies alcohol or illicit drug use. FAMILY HISTORY: Positive for coronary disease. REVIEW OF SYSTEMS: Pulmonary: Noteworthy for chronic exertional dyspnea. Gastrointestinal: Noncontributory beyond history of present illness. Constitutional: Noncontributory beyond history of present illness. REVIEW OF SYSTEMS: Remainder of Review of Systems negative/noncontributory beyond history of present illness with 14 total systems reviewed. PHYSICAL EXAMINATION: General: This is a middle-aged male in no distress on room air. He appears older than stated age. Vital Signs: Blood pressure 118/62, heart rate 75 and regular, and oxygen saturation 100% on room air. HEENT: Extraocular movements intact. Mucous membranes are moist. Neck: Supple without jugular venous distention. There are no carotid bruits. Chest: Clear to auscultation. Cardiac: Exam reveals a regular rate and rhythm without appreciable murmur or gallop. Abdomen: Soft. Bowel sounds are normal. Extremities: Without edema. Neurologic: Reveals him to be alert and fully oriented. Speech is fluent. Moves all 4 extremities equally well. Skin: Warm and dry. Psychiatric: Reveals mood to be appropriate. DIAGNOSTIC: A 12 lead EKG demonstrates sinus rhythm and possible lateral infarct of undetermined age. Nonspecific T-wave abnormality demonstrated. LABORATORY DATA: White blood cell count 8.0, hematocrit 42.5, hemoglobin 14.1 and platelet count 187,000. Sodium 139, potassium 4.2, chloride 104, carbon dioxide 26, BUN 10 and creatinine 0.6, glucose 130. Initial troponin less than 0.01. Followup troponin less than 0.01. cc: Tj Alcala MD
[2019-02-17] MEDS ORDERED: LEXISCAN ONE (14:27)
[2019-02-17] MEDS: ASPIRIN PO SCH (16:27)
[2019-02-17] MEDS: PLAVIX PO SCH (16:27)
[2019-02-17] MEDS: LOVENOX SUBQ SCH (16:27)
[2019-02-17] MEDS: LOPRESSOR PO SCH (16:28)
--- NOTE | 2019-02-17 17:38 | Diag Imaging Result Document ---
PROCEDURE NAME: MYOCARDIAL PERF SCAN, STR/REST - 02/17/2019 INDICATION: Chest pain, coronary heart disease. DESCRIPTION: The patient came in to the nuclear lab and received rest injection of technetium 99 sestamibi 10.9 mCi. Multiple tomographic views of the cardiac structures were obtained at rest. Subsequently the patient underwent Lexiscan infusion of 0.4 mg, and at peak infusion was injected with technetium 99 sestamibi 31.3 mCi. Multiple tomographic views of the cardiac structures were obtained following the completion of the exercise protocol. SUMMARY OF THE ELECTROCARDIOGRAPHIC PORTION OF THE STUDY: Resting ECG showed sinus rhythm, rate 70 beats per minute. Resting blood pressure was 104/70. Resting ECG showed a nonspecific T-wave in the inferior leads. During the protocol, the heart rate increased to 115 beats per minute. The blood pressure dropped to 95/67. The patient reported no chest pain, shortness of breath or palpitations. ECG showed sinus tachycardia without any ischemic changes. Following the completion of the test, the heart rate and blood pressure returned back to baseline . In summary, the electrocardiographic response to infusion of Lexiscan is unremarkable. SUMMARY OF THE MYOCARDIAL PERFUSION PORTION OF THE STUDY: Post-stress tomographic views of the left ventricle showed a relatively extensive and tzyrclit-[id number] lateral/inferolateral wall defect. The rest images showed only trivial reversibility in the midsection of the defect. For the most part, this defect is fixed. The polar plots revealed the same. There appears to be an extensive, [id number]-gz-swieyffc lateral/inferolateral scar with very trivial emily-scar ischemia in the midsection of the defect. This is very minimal. Gated SPECT shows preserved ejection fraction of 65% using the [employer] protocol, and 57% using the [employer] protocol. There is impairment of the inferolateral wall of the left ventricle. The lung/heart ratio is normal at 0.34. The TID is normal at 0.92. SUMMARY: This study shows: 1. Abnormal resting ECG with unremarkable response to infusion of Lexiscan. 2. Abnormal post-stress myocardial perfusion scan. 3. There is scintigraphic evidence of a moderately extensive, ejuvngbt-qh-oaonuueq lateral wall/inferolateral wall scar with a very minimal degree of ischemia. The defect basically is consistent with a scar probably involving the territory of the circumflex. 4. Generally preserved left ventricular systolic function, ejection fraction between 57% to 65% with focal impairment of the inferolateral wall in the left ventricle. Clinical correlation is strongly recommended. cc: MD Farideh Vaughan PA
[2019-02-17] MEDS: CELEXA PO SCH (21:42)
[2019-02-17] MEDS: PRINIVIL PO SCH (21:42)
[2019-02-17] MEDS: IMDUR PO SCH (21:43)
[2019-02-18] MEDS: HUMULIN R SUBQ SCH ×5 (06:48→11:12)
[2019-02-18] MEDS ORDERED: PRILOSEC PO SCH (07:00)
[2019-02-18] MEDS: ASPIRIN PO SCH (10:05)
[2019-02-18] MEDS: NEURONTIN PO SCH (10:06)
[2019-02-18] MEDS: TRICOR PO SCH (10:06)
[2019-02-18] MEDS: LOPRESSOR PO SCH (10:07)
[2019-02-18] MEDS: PLETAL PO SCH (10:07)
[2019-02-18] MEDS: PLAVIX PO SCH (10:07)
[2019-02-18] MEDS: LOVENOX SUBQ SCH ×2 (10:07→11:13)
[2019-02-18] MEDS: CRESTOR PO SCH (10:07)
[2019-02-18 11:56] VITALS: BP 111/70
--- NOTE | 2019-02-18 13:31 | ECHO REPORT ---
ORDER DATE: 02/16/2019 INTERPRETING PHYSICIAN: Dr. Jose Gipson ECHOCARDIOGRAPHIC MEASUREMENTS: 1. Interventricular septum: 1.0 cm. 2. Posterior wall: 1.0 cm. 3. Diastolic diameter: 5.1 cm. 4. Left atrium: 3.7 cm. 5. Aortic root: 3.5 cm. SUMMARY OF THE 2-DIMENSIONAL IMAGIN. Aortic valve leaflets are trileaflet. 2. Pulmonic valve was normal. 3. Mitral valve was normal. 4. Tricuspid valve was normal. 5. There is mild mitral regurgitation. 6. Mild tricuspid regurgitation. Peak velocity across the tricuspid valve was 2.3 m/sec. 7. Peak velocity across the aortic valve less than 2 m/sec. There is no aortic stenosis. There is trace aortic regurgitation. 8. Normal left ventricular cavity size. Estimated ejection fraction of 60%. 9. There is no pericardial effusion or obvious intracardiac mass or thrombus seen. cc: MD Merlene Palma CRNP
--- NOTE | 2019-02-19 09:10 | DISCHARGE SUMMARY ---
ADMISSION DATE: 02/16/2019 DISCHARGE DATE: 02/18/2019 DISCHARGE DIAGNOSES: 1. Chest pain, resolved. 2. Diabetes mellitus type 2. 3. Severe peripheral arterial disease. 4. Peripheral vascular disease. 5. Coronary artery disease. 6. Gastroesophageal reflux disease. 7. Chronic obstructive pulmonary disease not in exacerbation. 8. Hyperlipidemia. 9. History of noncompliance with medication. CONSULTATION: Dr. Alcala from Cardiology. PROCEDURES: 1. X-ray done on admission showed negative exam. 2. Myocardial perfusion scan. Nuclear medicine showed electrocardiographic response to the infusion of Lexiscan is unremarkable, and an abnormal resting ECG with unremarkable response to infusion to Lexiscan. There is a scar probably involving the territory of the circumflex generally preserved left ventricular systolic function with ejection fraction between 57% to 65%. HOSPITAL COURSE: Basically, this is a 48-year-old male with past medical history of coronary artery disease with 2 stents placed before who presented to the emergency department complaining of chest pain. Considering his comorbidities and past medical history, we decided to admit this patient to the hospital check troponin's, and do echocardiogram and consult Cardiology. All tests as above were done and negative. The patient is not complaining of any chest pain so, he is going to be discharged in stable condition. He is recommended to see his primary fare collector Dr. Lobato in the office in 4 to 6 weeks from the time of discharge. The patient is being released in stable condition. DISCHARGE PHYSICAL EXAMINATION: Vital Signs: Temperature 97.5 degrees, heart rate 72, respiratory rate 18, blood pressure 120/74, and O2 saturation 98% on room air. General: This is a 48-year-old male, lying in bed, in no acute distress. Cardiovascular: S1 and S2 heard. No murmurs, gallops, or rubs. Regular rate and rhythm. Respiratory: Clear bilaterally to auscultation. No work of breathing or using accessory muscles. Abdomen: Soft, nontender to palpation. Bowel sounds present. No organomegaly. Extremities: No clubbing, cyanosis, or edema. Peripheral pulses present in both legs. Neurological: The patient is alert and oriented x3. Moves 4 extremities. DISCHARGE DISPOSITION: Home to self-care. List of medications: We are not making any changes to his home medications. cc: Emir Hanson MD
== END 2019-02-18 13:45 | disposition home or self-care (01) | DRG 313 ==
LOC: ED 11:51 → EDIPHOLD 15:11 → 3N 21:13
PROVIDERS: ATTEND Internal Medicine
CPT/HCPCS: 71020; 71046; 78452; 80053; 80101; 80301; 80307; 80324; 80345; 80346; 80353; 80358; 80361; 80365; 82550; 82948; 83036; 83735; 83880; 83992; 84439; 84443; 84484; 85025; 85610; 85730; 86140; 93005; 93010; 93017; 93306; 99285; A9270; A9500; G0431; G0434; G0479; G0480; J1650; J2785; XXXXX

== ENCOUNTER 2019-05-26 09:49 | Day surgery (SDC) ==
--- NOTE | 2019-05-20 11:28 | EKG Report ---
Test Performed on : 05/20/2019 10:49:07 AM Test Reason : PAT Blood Pressure : / mmHG Vent. Rate : 059 BPM Atrial Rate : 059 BPM P-R Int : 160 ms QRS Dur : 100 ms QT Int : 404 ms P-R-T Axes : 057 011 042 degrees QTc Int : 399 ms Sinus bradycardia. with sinus arrhythmia. Septal infarct , age undetermined Abnormal ECG When compared with ECG of 17-FEB-2019 07:47, Criteria for Lateral infarct are no longer present Nonspecific T wave abnormality, improved in Inferior leads Confirmed by Shawn SALGUERO, Suzy Weinstein ([id number]) on 05/24/2019 8:31:48 AM
[2019-05-20 11:33] LABS: HEMATOCRIT 45.9 % (42.0-52.0); HEMOGLOBIN 15.2 g/dL (14.0-18.0); MCH 28.8 PG (27-31); MCHC 33.1 g/dL (33-37); MCV 86.9 FL (81-99); MPV 10.9 FL (7.4-10.4); RBC 5.28 XMIL (4.7-6.1); RDW 14.4 % (11.5-14.5); WBC 8.94 X1000 (4.8-10.8)
[2019-05-20 12:04] LABS: AGAP 11; BUN 11 mg/dL (8-22); CALCIUM 8.5 mg/dL (8.8-10.2); CHLORIDE 103 mmol/L (98-107); COSMO 275; CREATININE 0.7 mg/dL (0.7-1.2); ESTIMATED GFR > 60; GLUCOSE 100 mg/dL (70-104); POTASSIUM 4.2 mmol/L (3.5-5.1); SODIUM 138 mmol/L (136-145); TCO2 24 mmol/L (25-35)
[2019-05-26] MEDS ORDERED: KEFZOL 1 GM/D5W 1 GM/50 ML IVPB ONE (10:40)
[2019-05-26] MEDS ORDERED: LR 1,000 ML ONE (10:40)
[2019-05-26] MEDS ORDERED: DIPRIVAN 1% ONE (12:59)
[2019-05-26] MEDS ORDERED: PAPAVERINE ONE (13:33)
[2019-05-26] MEDS ORDERED: KEFZOL ONE (13:36)
[2019-05-26] MEDS ORDERED: NS 2,000 ML ONE (13:37)
[2019-05-26] MEDS ORDERED: HEPARIN ONE ×2 (13:37)
[2019-05-26] MEDS ORDERED: NEO-SYNEPHRINE ONE (14:09)
[2019-05-26] MEDS ORDERED: EPHEDRINE ONE (14:09)
[2019-05-26] MEDS ORDERED: ZOFRAN ONE (14:09)
[2019-05-26] MEDS ORDERED: NORCURON ONE (14:09)
[2019-05-26] MEDS ORDERED: DECADRON ONE (14:09)
[2019-05-26] MEDS ORDERED: XYLOCAINE-MPF 2% ONE (14:09)
[2019-05-26] MEDS ORDERED: QUELICIN (DOSE) ONE (14:09)
[2019-05-26] MEDS ORDERED: HEPARIN (DOSE) ONE (14:24)
[2019-05-26] MEDS ORDERED: ROBINUL ONE (14:26)
[2019-05-26] MEDS ORDERED: SENSORCAINE 0.25%/EPI 1:200,000 ONE (15:38)
[2019-05-26] MEDS ORDERED: NS 1,000 ML ONE (16:03)
[2019-05-26] MEDS ORDERED: BUPRENEX IV PRN (16:42)
[2019-05-26] MEDS ORDERED: PLAVIX PO ONE (16:42)
[2019-05-26] MEDS ORDERED: ZOFRAN IV PRN (16:42)
[2019-05-26 17:20] LABS: URINE SOURCE CATH
[2019-05-26 17:21] LABS: BILIRUBIN URINE NEGATIVE (NEGATIVE); BLOOD URINE NEGATIVE (NEGATIVE); COLOR YELLOW; GLUCOSE URINE >1000 mg/dL (NEGATIVE); KETONE URINE NEGATIVE (NEGATIVE); LEUKOCYTES URINE NEGATIVE (NEGATIVE); NITRITE URINE NEGATIVE (NEGATIVE); PH URINE 5.5; PROTEIN URINE NEGATIVE (NEGATIVE); SP GRAVITY URINE 1.022; TURBIDITY URINE CLEAR (CLEAR); UR EPITHELIAL CELLS <10 /HPF (<10); URINE BACTERIA NEGATIVE /HPF; URINE RBC <10 /HPF (<10); URINE WBC <10 /HPF (<10); UROBILINOGEN URINE NORMAL (NORMAL)
[2019-05-26] MEDS: NORCO-10 PO PRN ×2 (17:22→21:42)
[2019-05-26] MEDS: NS 1,000 ML IV SCH (17:42)
[2019-05-26] MEDS: NEURONTIN PO SCH (17:42)
--- NOTE | 2019-05-26 20:50 | OPERATIVE NOTE ---
PROCEDURE DATE: 05/26/2019 PROCEDURE: 1. Percutaneous right femoral artery access with ultrasound guidance. 2. Open right superficial femoral artery atherectomy, retrograde approach with the Inpact drug-coated balloon angioplasty. 3. Right superficial femoral artery stent placement. 4. Percutaneous fem-fem graft access with ultrasound guidance and a right femoral artery balloon angioplasty at the anastomosis. SURGEON: Herson Oliveira MD. ASSISTANTS: Hollie and Samreen Blevins. PREOPERATIVE DIAGNOSIS: Right leg claudication secondary to a right superficial femoral artery occlusion. POSTOPERATIVE DIAGNOSIS: 1. Right leg claudication secondary to a right superficial femoral artery occlusion. 2. Anastomotic stenosis between the fem-fem graft in the right common femoral artery. DESCRIPTION OF PROCEDURE: Under satisfactory general endotracheal anesthesia the left groin, right groin, and right leg were prepped and draped in a sterile fashion. He had been mapped for purposes of a bypass if needed. We imaged the right femoral artery with ultrasound and attempted an antegrade stick and in fact accessed the artery, but the wire went into the deep femoral. We could not really identify the superficial femoral based on the use of this sheath. So, I made a longitudinal incision in the distal medial thigh. Dissected into the popliteal space and identified the proximal popliteal artery, surrounded with a vessel loop. We punctured the artery in a retrograde approach and passed a wire followed by a 7-Chilean sheath. We then shot a retrograde arteriogram showing the level of the obstruction. Then, a Glidewire was passed to the obstruction. We then used a Trailblazer, and with the wire bent and the trailblazer following it, we were able to follow up tract the SFA all the way back to the common femoral. We removed the Glidewire, shot a arteriogram and the Trailblazer was in fact in the tolowa dee-ni' common femoral artery lumen. We then went to our 0.14 Nitrex wire and passed it up into the right common iliac. We then used an H1-LS atherectomy catheter and treated the length of the occlusion, which was about 22 cm long. So, we treated it in every quadrant. Upon completion of that, we shot a retrograde arteriogram revealing complete patency. I then obtained a 5 x 12 impact DCB balloon and treated the distal portion of the area that we had treated and had been occluded and then I used a 6 x 12 balloon and treated the proximal portion of the occlusion. Upon completion of that, we had a nice patency to the artery. There was a small intimal tear distally and so we had to obtain a 6 and then the intimal tear was mobile. So we had to use a 6 x 4 smart Control stent to lay across that and after deploying it, a retrograde arteriogram showed no further mobility to the intimal plaque and it had been pressed against the wall of the artery. I failed to mention that we gave the patient 7000 units of heparin. Once we realized that we were able to traverse the chronic occlusion and we could do the atherectomy, we did give the patient 7000 units of heparin intravenously early on. We then imaged the fem-fem graft and made a small stab incision and accessed the fem-fem graft with a Seldinger technique and passed the 6-Chilean sheath into the graft. We shot an arteriogram, and showed a stenosis at the arterial anastomosis. This has been noted possibly on the CTA. I then passed a Glidewire across the anastomotic stenosis and first used a 4 x 4 balloon, Powerflex balloon. Then, a 5 x 4 Powerflex balloon, inflated to nominal pressures for 1 minute. Completion arteriogram showed satisfactory patency with improvement in the stenosis. At this point, obtained a Mynx closure device and used it on the femoral artery 7-Chilean sheath deploying it according to manufacture's specifications. Upon completion of that, we shot an arteriogram revealing still this was through the fem-fem graft and with satisfactory patency and no evidence of bleeding. We then removed our wire and sheath in the distal SFA proximal popliteal artery and closed it with a 5-0 Prolene [id number] stitch. This provided adequate hemostasis. We irrigated out the popliteal space wounds and then closed the subcutaneous tissue with 2-0 Polysorb running in the subcu. We then use 0.25 Marcaine with epinephrine in the subcutaneous tissue. We then obtained an of the Mynx closure device for the fem-fem graft and deployed it according to manufacture's specifications as well. We closed the skin at the distal medial thigh with a 4-0 Polysorb subcuticular stitch. Pressure was held on the femoral artery puncture site and the fem-fem graft puncture site for approximately 5 minutes. Hemostasis appeared satisfactory. A sterile dressing was applied on the distal medial thigh wound. Pressure dressing was applied on the fem-fem graft wound and the common femoral wound as well. He tolerated the procedure satisfactorily. About 100 mL of blood loss. About 103 mL of contrast was used. He was sent to the recovery room in satisfactory condition. cc: Herson Oliveira MD MTDD
[2019-05-26] MEDS ORDERED: CELEXA PO SCH (21:00)
[2019-05-26] MEDS: LOPRESSOR PO SCH (21:42)
[2019-05-26] MEDS: RANEXA PO SCH (21:42)
[2019-05-27] MEDS ORDERED: TYLENOL PO PRN (01:00)
[2019-05-27] MEDS: NORCO-10 PO PRN ×2 (01:37→06:09)
[2019-05-27] MEDS: NS 1,000 ML IV SCH ×3 (01:50→12:56)
--- NOTE | 2019-05-27 05:48 | EKG Report ---
Test Performed on : 05/27/2019 05:42:17 AM Test Reason : Chest Pain Blood Pressure : / mmHG Vent. Rate : 053 BPM Atrial Rate : 053 BPM P-R Int : 162 ms QRS Dur : 086 ms QT Int : 452 ms P-R-T Axes : 088 -04 008 degrees QTc Int : 424 ms Sinus bradycardia. with sinus arrhythmia. Possible Left atrial enlargement Septal infarct (cited on or before 17-FEB-2019) Abnormal ECG When compared with ECG of 20-MAY-2019 10:49, Nonspecific T wave abnormality, worse in Inferior leads Confirmed by Shawn SALGUERO, M. Js ([id number]) on 05/27/2019 12:11:04 PM
[2019-05-27] MEDS ORDERED: MORPHINE IV PRN (06:50)
[2019-05-27] MEDS ORDERED: PRILOSEC PO SCH (07:00)
--- NOTE | 2019-05-27 07:01 | Diag Imaging Result Doc PS360 ---
EXAM: CHEST-PORTABLE 05/27/2019 HISTORY: Chest Pain TECHNIQUE: AP portable upright at 0628 COMMENT: The inspiration is less optimal than on the previous study of 02/16/2019. Otherwise, there has been no significant change. IMPRESSION: Poor inspiration. Electronically signed by Mt Meza 05/27/2019 6:58 AM
[2019-05-27 07:08] LABS: AGAP 13; BUN 15 mg/dL (8-22); CALCIUM 8.6 mg/dL (8.8-10.2); CHLORIDE 98 mmol/L (98-107); COSMO 280; CREATININE 0.7 mg/dL (0.7-1.2); ESTIMATED GFR > 60; GLUCOSE 224 mg/dL (70-104); POTASSIUM 4.4 mmol/L (3.5-5.1); SODIUM 136 mmol/L (136-145); TCO2 25 mmol/L (25-35)
[2019-05-27] MEDS: HUMULIN R SUBQ SCH ×3 (07:15→16:39)
--- NOTE | 2019-05-27 07:37 | CONSULTATION ---
DATE OF CONSULTATION: 05/27/2019 ATTENDING: Dr. Garcia. CONSULTING: Dr. Castro. REASON FOR CONSULTATION: Medical management and chest pain. HISTORY OF PRESENTING ILLNESS: A 48-year-old male with a history of coronary disease, [place], GERD, diabetes mellitus type 2, COPD who is currently under the care of General Surgery after having superficial femoral artery atherectomy and fem-fem graft. Hospital Medicine is consulted due to patient having chest discomfort and also for medical management of other problems. The patient apparently states that he has been having some intermittent chest pain for while. He had a recent heart catheterization done in earlier of March at [facility] with recommendation of medical management. At the time of my examination, patient states that his chest pain had gone, feels much better. Patient is heavy smoker and states that he is mostly having shortness of breath. Not chest discomfort. PAST MEDICAL HISTORY: Includes diabetes mellitus type 2, GERD, hyperlipidemia, coronary disease, [place], COPD, peripheral vascular disease. PAST SURGICAL HISTORY: Cataract surgery, recent heart catheterization. ALLERGIES: No known drug allergies. CURRENT MEDICATIONS: 1. Include cilostazol 100 mg p.o. b.i.d. 2. Metformin 500 mg p.o. at bedtime. 3. Brilinta 90 mg p.o. b.i.d. 4. Aspirin 325 mg p.o. daily. 5. Citalopram 20 mg p.o. daily. 6. Farxiga 10 mg p.o. daily. 7. Fenofibrate 145 mg p.o. daily. 8. Isosorbide mononitrate 60 mg p.o. daily. 9. Metoprolol 25 mg p.o. daily. 10. Ranexa 500 mg p.o. b.i.d. 11. Crestor 20 mg p.o. daily. SOCIAL HISTORY: Twenty pack years history of smoking. Denies any history of alcohol or illicit drug use. FAMILY HISTORY: Positive coronary disease in father. REVIEW OF SYSTEMS: Fourteen point review of system as listed in HPI. Other systems negative. PHYSICAL EXAMINATION: General: Cooperative, friendly male. He is resting comfortably now. Vital Signs: Temperature 98.2 degrees, pulse 63, respiration 18, blood pressure 108/62. HEENT: Atraumatic, normocephalic. Extraocular movements intact. PERRLA. Neck: No masses. Chest: Clear to auscultation. Cardiovascular: Regular rate and rhythm. Abdomen: Soft. Positive bowel sounds. Extremities: Some trace edema. Neurologic: He is awake, alert, oriented x3. : No bladder distention. Skin: Warm. LABORATORIES AND STUDIES: WBCs 8.94, hemoglobin 15.2, hematocrit 45.9, platelets 219,000. Sodium 138, potassium 4.2, chloride 103, CO2 24, BUN is 11, creatinine 0.7, glucose 100. ASSESSMENT: This is a 48-year-old male with a history of diabetes mellitus type 2, GERD, coronary disease, COPD who is currently under the care of General Surgery after having a superficial femoral artery arthrectomy and fem-fem graft. Hospital Medicine is count consulted due to patient having chest discomfort and also medical management of other problems. ASSESSMENT: 1. Chest pain. 2. Coronary artery disease. 3. Status post superficial femoral artery arthrectomy and fem-fem graft. 4. Diabetes mellitus type 2. 5. Hypertension. PLAN: 1. We will continue with cardiac workup. Check EKG, serial cardiac enzymes. Have patient continue on aspirin. The patient had recent heart catheterization with recommendation of medical management. 2. We will continue with his Imdur. 3. We will defer postop care to Surgery. 4. We will monitor blood glucose and put patient on sliding scale insulin regimen. 5. Monitor blood pressure. Resume antihypertensive agent. 6. We will continue to follow with you. Thank you for allowing me to participate in the care of this patient. cc: MD Herson Mullen MD
[2019-05-27] MEDS: DUONEB (A & A) INH PRN ×3 (07:58→14:58)
[2019-05-27] MEDS ORDERED: NON-FORMULARY MED (Dapagliflozin Propanediol [Farxiga] 0 MG) PO SCH (09:00)
[2019-05-27] MEDS ORDERED: VITAMIN B-12 PO SCH (09:00)
[2019-05-27] MEDS ORDERED: NON-FORMULARY MED (Empagliflozin [Jardiance] 0 MG) PO SCH (09:00)
[2019-05-27] MEDS ORDERED: ASPIRIN PO SCH (09:00)
[2019-05-27] MEDS ORDERED: CRESTOR PO SCH (09:00)
[2019-05-27] MEDS ORDERED: VITAMIN D PO SCH (09:00)
[2019-05-27] MEDS ORDERED: IMDUR PO SCH (09:00)
[2019-05-27] MEDS ORDERED: TRICOR PO SCH (09:00)
[2019-05-27] MEDS: LOPRESSOR PO SCH (09:53)
[2019-05-27] MEDS: NEURONTIN PO SCH ×3 (09:55→17:59)
[2019-05-27] MEDS: RANEXA PO SCH (09:55)
[2019-05-27 12:15] LABS: HEMOGLOBIN A1C 7.3 % (4.8-6.0)
--- NOTE | 2019-05-27 12:26 | PROGRESS NOTE ---
DATE: 05/27/2019 SUBJECTIVE: This morning, Mr. Gongora refers to be doing fairly okay. No new complaint. Mr. Gongora has severe coronary artery disease status post 3 stents in the past. The last left heart catheterization was March of this year. Follows up with Dr. Almonte. He also has severe peripheral vascular disease and he underwent vascular intervention yesterday, an open superficial femoral artery atherectomy with a right superficial femoral artery stent placement yesterday. I understand early this morning we were consulted for medical management as well as the fact that the patient was having some chest discomfort. This morning he denies any more chest pain. His EKGs both yesterday and this morning have not shown any changes. OBJECTIVELY: Vital signs: Blood pressure is currently 118/62, pulse of 59, respirations is 14, temperature 98.1 degrees. General: Mr. Gongora is a 48-year-old male. He is in bed. No distress. HEENT: Mucosa is pink and moist. Anicteric. Acyanotic. Neck: Supple. Chest: Clear to auscultation. Cardiovascular: Regular rate and rhythm. Abdomen: Soft. Extremities: No pedal edema. Distal pulses present but slightly faint, especially on the right. There is a new dressing on the medial aspect of the right thigh from the recent vascular intervention. Central nervous system: Patient is awake, alert, and oriented. LABORATORY DATA: Chemistry is reviewed, is completely normal. Troponin was done early this morning which is negative. IMAGING: A chest x-ray this morning shows poor inspiration. ASSESSMENT: 1. Severe peripheral vascular disease with right leg claudication secondary to right superficial femoral artery occlusion. Patient is status post an open right superficial femoral artery atherectomy with right superficial femoral artery stent placement by Dr. Oliveira. 2. Coronary artery disease status post stents at least 3 times in the past. The patient had the last left heart catheterization done March this year by Dr. Almonte in [place], and says that there was no major or critical stenosis that needs any intervention. 3. Chest pain, resolved. It is very possible this is just a reflection of the patient's underlying coronary artery disease. However, this morning his troponin is negative, EKG does not show any changes and patient is completely asymptomatic. He has been restarted back on his home medications which include aspirin, Brilinta, beta jaison, and Crestor. I have gone up on the dose of Crestor to optimize his statin therapy. 4. Diabetes mellitus, controlled. 5. Hypertension, stable. cc: MD Herson Hoskins MD
[2019-05-27 15:38] VITALS: BP 113/69
[2019-05-27] MEDS ORDERED: BRILINTA PO SCH (21:00)
--- NOTE | 2019-05-27 21:23 | GENERAL SURGERY PROGRESS NOTE ---
DATE: 05/27/2019 SUBJECTIVE: Mr. Gongora is doing generally well. OBJECTIVE: He is afebrile. Heart rate 55, blood pressure 113/69. He is having no chest pain now. He has a posterior tibial pulse. His bandage is dry. Chemistry is okay. PLAN: The plan is to discharge him home. He can resume his Brilinta. Will write him something for pain. He will return to see me in the office in a week. cc: Herson Oliveira MD
[2019-05-28] MEDS ORDERED: CRESTOR PO SCH (09:00)
--- NOTE | 2019-05-29 13:25 | Extremity Venous Study ---
PROCEDURE NAME: Vein Mapping Right GSV - 05/26/2019 PROCEDURE: Right lower extremity vein mapping for bypass surgery. DATE OF STUDY: 05/26/2019. REQUESTING PHYSICIAN: Dr. Oliveira. AUTO TIRE RECAPPER: Elena. INDICATION: Right lower extremity preop evaluation. EQUIPMENT: Tinybop E 9 ultrasound system with a 9 L-D transducer. FINDINGS: Images of the right lower extremity greater saphenous vein were obtained with attention given to size in the proximal thigh going to the distal leg. It measures 4.2, 4.3, 3.9, 3.9, 4.1, 3.3, 3.0 at 3.0 at the ankle. There appears to be no pathology noted in the veins. No clots. INTERPRETATION: Adequate vein on the right side from bypass. cc: MD Herson Cartagena MD
== END 2019-05-27 20:04 | disposition home or self-care (01) ==
LOC: PAT 09:49 → 2N 09:49 → SUATTDRO 16:11 → PAT 05-27 20:04
PROVIDERS: ATTEND Surgery